=== PATIENT | male | born 1950 | race Caucasian/White ===

== ENCOUNTER → 2016-09-30 | Outpatient (CLI) | payer MEDICARE ==
[~2016-09-30] MED LIST: ASPIRIN 325MG325 MG PO; BETAPACE120 MG PO; COUMADIN 10MG T10 MG PO; COUMADIN5 MG PO; FISH OIL1000 MG PO; LISINOPRIL 20MG20 MG PO; LORTAB 500 MG-71 TAB PO; LOVENOX 10100 MG/1 M SC; MULTIVITAMIN1 TA1 PO; SIMVASTATIN40 MG PO
== END ==
LOC: RT 09:00
DX: I49.9 Cardiac arrhythmia, unspecified (principal)

== ENCOUNTER → 2016-10-26 | Outpatient (CLI) | payer MEDICARE | LOC: ACC 10:00 | DX: I48.91 Unspecified atrial fibrillation (principal); Z79.01 Long term (current) use of anticoagulants; Z51.81 Encounter for therapeutic drug level monitoring | CPT/HCPCS: G0463 ==

== ENCOUNTER → 2016-12-24 | Outpatient (CLI) | payer MEDICARE ==
[2016-12-24 07:55] LABS: HEMOGLOBIN 17.3 g/dL (14.1-18.0); LYMPH # 3.1 K/mm3 (0.7-4.5); LYMPH % 47.1 % (10-50)
[2016-12-24 08:32] LABS: BUN 8 mg/dL (7-18); GFR (ESTIMATED) 85 ML/MIN (>60); PROSTATE-SPECIFIC ANTIGEN F/U 3.7 ng/mL (0.0-4.0)
[2016-12-24 15:35] LABS: AMPHETAMINES/METAMPHETAMINES NEGATIVE ng/mL (<1000)
[2016-12-25 07:39] LABS: HBsAg Screen Negative (Negative); Hep A Ab, IgM Negative (Negative); Hep B Core Ab, IgM Negative (Negative); Hep C Virus Ab <0.1 (0.0-0.9)
== END ==
LOC: LAB 07:44
PROVIDERS: Emergency Medicine
DX: I10 Essential (primary) hypertension (principal); E78.5 Hyperlipidemia, unspecified; Z79.899 Other long term (current) drug therapy; N40.0 Benign prostatic hyperplasia without lower urinary tract symptoms

== ENCOUNTER 2017-03-22 10:54 | Outpatient (CLI) | payer MEDICARE ==
[2017-03-22 16:15] LABS: AMPHETAMINES/METAMPHETAMINES NEGATIVE ng/mL (<1000)
== END 2017-03-22 15:39 ==
LOC: LAB 10:54 → ACC 10:54
PROVIDERS: Emergency Medicine
DX: I48.91 Unspecified atrial fibrillation (principal); Z79.01 Long term (current) use of anticoagulants; Z51.81 Encounter for therapeutic drug level monitoring; Z79.899 Other long term (current) drug therapy
CPT/HCPCS: G0463

== ENCOUNTER 2017-04-22 10:30 | Outpatient (CLI) | payer MEDICARE ==
[2017-04-22 20:20] LABS: AMPHETAMINES/METAMPHETAMINES NEGATIVE ng/mL (<1000)
== END 2017-04-22 15:36 ==
LOC: ACC 10:30 → LAB 10:30 → ACC 15:36
PROVIDERS: Emergency Medicine
DX: I48.91 Unspecified atrial fibrillation (principal); I26.99 Other pulmonary embolism without acute cor pulmonale; Z79.01 Long term (current) use of anticoagulants; Z51.81 Encounter for therapeutic drug level monitoring
CPT/HCPCS: G0463

== ENCOUNTER → 2017-08-19 | Outpatient (CLI) | payer MEDICARE ==
[2017-08-19 12:53] LABS: HEMOGLOBIN 17.3 g/dL (14.1-18.0); LYMPH # 2.7 K/mm3 (0.7-4.5); LYMPH % 39.1 % (10-50)
[2017-08-19 13:07] LABS: BUN 7 mg/dL (7-18)
[2017-08-19 13:14] LABS: GFR (ESTIMATED) 84 ML/MIN (>60)
[2017-08-20 08:44] LABS: Vitamin D, 25-Hydroxy 14.4 ng/mL (30.0-100.0)
== END ==
LOC: LAB 12:36
PROVIDERS: Emergency Medicine
DX: R53.83 Other fatigue (principal); I10 Essential (primary) hypertension; E78.5 Hyperlipidemia, unspecified; E55.9 Vitamin D deficiency, unspecified; Z79.899 Other long term (current) drug therapy